=== PATIENT | female | born 1960 | race Caucasian/White ===

== ENCOUNTER 2017-08-05 12:37 | Emergency (ER) | payer MEDICARE ==
[2017-08-05] MEDS ORDERED: IBUPROFEN 800 MG TABLET PO ONE (13:35)
[2017-08-05] MEDS ORDERED: IBUPROFEN 600 MG TABLET PO ONE (13:49)
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
--- NOTE | 2017-08-05 14:19 | RADIOLOGY REPORT (SQ) ---
EXAM DESCRIPTION: KNEE LEFT 4 VIEW COMPLETED DATE/TIME: 08/05/2017 2:07 pm REASON FOR STUDY: fall injury pain COMPARISON: None. NUMBER OF VIEWS: Four views. TECHNIQUE: AP, lateral, and both oblique radiographic images acquired of the left knee. LIMITATIONS: None. FINDINGS: MINERALIZATION: Normal. BONES: No definite fracture dislocation. Cannot entirely rule out depression of the lateral tibial p lateau. JOINT: There is moderate narrowing of the medial and lateral joint compartments. There is narrowing of the patellofemoral compartment with some small trochlear osteophytes. SOFT TISSUES: No soft tissue swelling. No radio-opaque foreign body. OTHER: No other significant finding. IMPRESSION: 1. Cannot entirely exclude lateral tibial plateau fracture, although there is no joint effusion or other evidence of a fracture. 2. Degenerative joint changes as described. TECHNICAL DOCUMENTATION: JOB ID: [id number] [employer]- All Rights Reserved
[2017-08-05 15:09] VITALS: BP 156/65
== END 2017-08-05 15:09 | disposition home or self-care (01) ==
LOC: ER 12:37
DX: S89.92XA Unspecified injury of left lower leg, initial encounter (principal); M25.562 Pain in left knee; M79.89 Other specified soft tissue disorders; X50.1XXA Overexertion from prolonged static or awkward postures, initial encounter; W19.XXXA Unspecified fall, initial encounter; Z87.891 Personal history of nicotine dependence
CPT/HCPCS: 99283; 73562; L1830; A9270